=== PATIENT | female | born 1970 | race Caucasian/White ===

== ENCOUNTER 2019-08-04 07:00 | Outpatient (RCR) | payer BC, SELFPAY ==
--- NOTE | 2019-05-06 17:25 | PTOPEVAL ---
Thank you for referring this patient to [facility]. Please review, sign, date and return this plan of care LORENA. Pt seen for initial evaluation today to address impairments related to her low back pain. She requires additional skilled PT 2x/wk x 4 wk to achieve therapy goals. I agree with and certify that the following plan of care is medically necessary. Referring Physician Date Attending Provider: Peter Rajan MD Referring Provider: *PT Outpatient Evaluation Start: 05/06/19 14:03 Freq: Status: Active Protocol: Document 05/06/19 14:00 CAP (Rec: 05/06/19 15:09 CAP [id number]) Therapy Assessment Status Assessment Status Assessment Status Evaluation Outpatient Past Medical History Neurological History Hx Migraine Yes Cardiovascular History Hx Hypertension Yes Respiratory History Hx Asthma Yes Hx Sleep Apnea Yes: cpap at night Gastrointestinal History Hx Other Gastrointestinal Disorders Yes: obesity Musculoskeletal History Hx Arthritis Yes: hands, shoulders, low back, knees Hx Degenerative Disk Disease Yes: L4-5 Psychosocial History Hx Anxiety Yes Hx Depression Yes Evaluation Information Problem Diagnosis low back pain with right sciatica Onset Mar 2019 Cause fall and lifting activity Subjective Information She has chronic pain that Query Text:As Reported By Patient/ varies. She was standing Family zipping up pants 03/3019 when she felt a pop in her right LB region. She went to ED and was given pain medication for her pain. Given medication of flexeril and naprosyn. TENS unit with acute pain only. She reports she always has back pain of 1-4/10 depending on weather. She reports numbness and tingling of right LE in to foot region that started in March. Pt had a fall early March on frosty ground landing on her stomach and twisting her left leg. She reports she is limited with prolonged standing of 5-7 min or walking more than 5'. She is limited with house
--- NOTE | 2019-05-11 09:14 | PCPTNOTE ---
Patient called & cancelled scheduled appointment this date due to weather.
--- NOTE | 2019-05-28 07:26 | PCPTNOTE ---
Patient called & cancelled scheduled appointment this date due to illness.
--- NOTE | 2019-06-05 16:15 | PTOPEVAL ---
Thank you for referring this patient to [facility][Note 3]. Please review, sign, date and return this plan of care LORENA. Pt has received 7 therapy visits to address back pain with radiating LE symptoms. She continues to have flare-up of right LE symptoms with activities. Her level varies with activities. She demonstrates improved trunk motion without changes in pain. She demonstrates progress towards therapy goals, but cont to require additional skilled therapy to address impairments and achieve maximal potential. I agree with and certify that the following plan of care is medically necessary. Referring Physician Date Admitting Provider: Attending Provider: Peter Rajan MD Referring Provider: *PT Outpatient Re-Evaluation Start: 05/06/19 14:03 Freq: Status: Active Protocol: Document 06/05/19 15:32 CAP (Rec: 06/05/19 16:15 CAP [id number]) Therapy Assessment Status Assessment Status Assessment Status Re-evaluation Outpatient Past Medical History Neurological History Hx Migraine Yes Cardiovascular History Hx Hypertension Yes Respiratory History Hx Asthma Yes Hx Sleep Apnea Yes: cpap at night Gastrointestinal History Hx Other Gastrointestinal Disorders Yes: obesity Musculoskeletal History Hx Arthritis Yes: hands, shoulders, low back, knees Hx Degenerative Disk Disease Yes: L4-5 Psychosocial History Hx Anxiety Yes Hx Depression Yes Evaluation Information Problem Diagnosis low back pain with right sciatica Onset Mar 2019 Cause fall and lifting activity Additional Evaluation Detail She reports she always has back pain of 1-4/10 depending on weather. Pt had a fall early March on frosty ground landing on her stomach and twisting her left leg. She reports she is limited with prolonged standing of 5-7 min or walking more than 5'. She is limited with house holdchores. She reports limitation with her ability to perform normal daily life activities due to pain. She has increased pain with ADL's and donning shoes or pants. Denies changes with sleep due to assist of medication. Subjective Information Her pain varies with ADL's Query Text:As Reporte
--- NOTE | 2019-06-24 07:41 | PCPTNOTE ---
Patient called & cancelled scheduled appointment this date due to weather.
--- NOTE | 2019-07-02 11:23 | PCPTNOTE ---
Patient called & cancelled scheduled appointment this date due to weather.
--- NOTE | 2019-07-09 17:37 | PTOPEVAL ---
Thank you for referring this patient to [facility]. Please review, sign, date and return this plan of care LORENA. Pt seen for 15 therapy visits to address back pain. She has improved back pain and performance with daily activities. She has reached most of her therapy goals related to her back. Evaluation for her right shoulder impairments performed today with decreased range and strength. She requires additional skilled PT 2x/wk x 4 wk to address shoulder. I agree with and certify that the following plan of care is medically necessary. Referring Physician Date Attending Provider: Peter Rajan MD Referring Provider: *PT Outpatient Evaluation Start: 05/06/19 14:03 Freq: Status: Active Protocol: Document 07/09/19 16:24 [facility] (Rec: 07/09/19 17:19 [facility] [id number]) Therapy Assessment Status Assessment Status Assessment Status Re-evaluation Outpatient Past Medical History Neurological History Hx Migraine Yes Cardiovascular History Hx Hypertension Yes Respiratory History Hx Asthma Yes Hx Sleep Apnea Yes: cpap at night Gastrointestinal History Hx Other Gastrointestinal Disorders Yes: obesity Musculoskeletal History Hx Arthritis Yes: hands, shoulders, low back, knees Hx Degenerative Disk Disease Yes: L4-5 Psychosocial History Hx Anxiety Yes Hx Depression Yes Evaluation Information Problem Diagnosis low back pain with right sciatica Onset Mar 2019 Cause fall and lifting activity Additional Evaluation Detail shoulder evaluation perform States the right shoulder pain is an inconvenence. 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 She used medication and TENS/ice/heat/ aspercream for pain relief. Reports limitations with overhead act, ADL's. She is unable to sleep in her right side. Reports difficulty with carrying objects with right UE . Subjective Information Reports her pain has Query Text:As Reported By Patient/ significantly improved with Family therapy. 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 States she is able to sleep better as a result of
--- NOTE | 2019-08-05 16:52 | PCPTNOTE ---
This treatment is being continued on visit 22 to number [id number]. Please see documentation on both accounts to view progress. Completed interventions, outcomes, and problems have been marked as Inactive to facilitate the copying of the Care plan routine for recurring accounts.
--- NOTE | 2019-08-06 16:15 | PTOPEVAL ---
Thank you for referring this patient to [facility]. Please review, sign, date and return this plan of care LORENA. Pt has been seen for 22 therapy visits to address back and right shoulder pain and impairments. She is able to perform normal daily activities without increased pain. She is indep with a HEP and fitness program. She has reached max potential with skilled therapy at this time. DC skilled therapy at this time. I agree with and certify that the following plan of care is medically necessary. Referring Physician Date Attending Provider: Peter Rajan MD Referring Provider: *PT Outpatient Discharge Start: 05/06/19 14:03 Freq: Status: Active Protocol: Document 08/06/19 15:49 CAP (Rec: 08/06/19 16:13 CAP [email or web address]) Outpatient Past Medical History Neurological History Hx Migraine Yes Cardiovascular History Hx Hypertension Yes Respiratory History Hx Asthma Yes Hx Sleep Apnea Yes: cpap at night Gastrointestinal History Hx Other Gastrointestinal Disorders Yes: obesity Musculoskeletal History Hx Arthritis Yes: hands, shoulders, low back, knees Hx Degenerative Disk Disease Yes: L4-5 Psychosocial History Hx Anxiety Yes Hx Depression Yes Evaluation Information Problem Diagnosis low back pain with right sciatica and shoulder pain Onset Mar 2019 Cause fall and lifting activity Additional Evaluation Detail shoulder evaluation perform Subjective Information Reports occasional soreeness Query Text:As Reported By Patient/ of right shoulder. She has the Family soreness mostly in the morning. Denies problems with ADL's/ IADL's, reaching act and carrying act. She is performing her shoulder , back HEP 5x/wk. She is going to the pool for walking exercise 5x/wk for 1 hour intervals. She reports her back pain is better with numbness of right foot. 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 Reports tal prolonged standing for 7 min intervals then requires a rest. Pain Assessment Timing of Pain Assessment Timing of Pain Assessment Assessment Pain Scale
== END 2019-08-04 23:59 | disposition home or self-care (01) ==
LOC: ANHPT 07:00
PROVIDERS: PCP Family Medicine; Visit Provider Family Medicine
DX: M25.511 Pain in right shoulder (principal); G89.29 Other chronic pain
CPT/HCPCS: 97110; 97140; 97162

== ENCOUNTER 2019-08-06 16:00 | Outpatient (RCR) | payer BC, SELFPAY ==
--- NOTE | 2019-08-05 16:53 | PCPTNOTE ---
The treatment documented on this account is a continuation of the treatment documented on visit . Please see documentation on both accounts to view progress. The Plan of Care has been transitioned and updated within the new V#. I have addressed and agree with the discipline specific Problems, Interventions, and Goals for the current certification period. Completed interventions, outcomes, and problems have been marked as Inactive to facilitate the copying of the Care plan routine for recurring accounts.
--- NOTE | 2019-08-10 11:43 | PTOPEVAL ---
Thank you for referring this patient to [facility]. Please review, sign, date and return this plan of care LORENA. Pt has been seen for 22 therapy visits to address back and right shoulder pain and impairments. She is able to perform normal daily activities without increased pain. She is indep with a HEP and fitness program. She has reached max potential with skilled therapy at this time. DC skilled therapy at this time. I agree with and certify that the following plan of care is medically necessary. Referring Physician Date Attending Provider: Peter Rajan MD Referring Provider: *PT Outpatient Discharge Start: 05/06/19 14:03 Freq: Status: Active Protocol: Document 08/06/19 15:49 CAP (Rec: 08/06/19 16:13 CAP [email or web address]) Outpatient Past Medical History Neurological History Hx Migraine Yes Cardiovascular History Hx Hypertension Yes Respiratory History Hx Asthma Yes Hx Sleep Apnea Yes: cpap at night Gastrointestinal History Hx Other Gastrointestinal Disorders Yes: obesity Musculoskeletal History Hx Arthritis Yes: hands, shoulders, low back, knees Hx Degenerative Disk Disease Yes: L4-5 Psychosocial History Hx Anxiety Yes Hx Depression Yes Evaluation Information Problem Diagnosis low back pain with right sciatica and shoulder pain Onset Mar 2019 Cause fall and lifting activity Additional Evaluation Detail shoulder evaluation perform Subjective Information Reports occasional soreeness Query Text:As Reported By Patient/ of right shoulder. She has the Family soreness mostly in the morning. Denies problems with ADL's/ IADL's, reaching act and carrying act. She is performing her shoulder , back HEP 5x/wk. She is going to the pool for walking exercise 5x/wk for 1 hour intervals. She reports her back pain is better with numbness of right foot. 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 Reports tla prolonged standing for 7 min intervals then requires a rest. Pain Assessment Timing of Pain Assessment Timing of Pain Assessment Assessment Pain Scale
== END 2019-08-07 13:39 | disposition home or self-care (01) ==
LOC: ANHPT 16:00
PROVIDERS: PCP Family Medicine; Visit Provider Family Medicine
DX: M25.511 Pain in right shoulder (principal); G89.29 Other chronic pain
CPT/HCPCS: 97110

== ENCOUNTER 2020-08-08 09:43 | Outpatient (CLI) | payer BC, SELFPAY | END 2020-08-08 09:44 | LOC: ANHCOVIDVC 09:43 | PROVIDERS: PCP Family Medicine | DX: Z23 Encounter for immunization (principal) | CPT/HCPCS: 0001A; 91300 ==

== ENCOUNTER 2020-08-29 09:43 | Outpatient (CLI) | payer BC, SELFPAY | END 2020-08-29 09:44 | disposition home or self-care (01) | LOC: ANHCOVIDVC 09:43 | PROVIDERS: PCP Family Medicine | DX: Z23 Encounter for immunization (principal) | CPT/HCPCS: 0002A; 91300 ==

== ENCOUNTER 2022-09-22 10:47 | Outpatient (CLI) | payer BC, SELFPAY ==
--- NOTE | ~2022-09-22 | MM_ITS ---
EXAMINATION: MM screening makayla BI w antonio HISTORY: Screening mammogram TECHNIQUE: Craniocaudal and mediolateral oblique 3-D tomosynthesis images were obtained and synthetic 2-D images were generated. CAD analysis was submitted and interpreted. COMPARISON: No prior mammogram is available for comparison at this institution. BREAST PARENCHYMAL COMPOSITION: The breasts are almost entirely fatty. FINDINGS: No suspicious mass, calcification, or architectural distortion are identified in either anjel ast to suggest malignancy. IMPRESSION: 1. No mammographic evidence of malignancy. 2. Recommend routine screening mammography in one year. BI-RADS Category 1: Negative Reviewed, dictated and finalized at location A.
== END 2022-09-22 10:48 | disposition home or self-care (01) ==
LOC: ANHIMG 10:50
PROVIDERS: PCP Nurse Practitioner Family; Visit Provider Nurse Practitioner Obstetrics & Gynecology
DX: Z12.31 Encounter for screening mammogram for malignant neoplasm of breast (principal)
CPT/HCPCS: 77063; 77067